=== PATIENT | male | born 1985 | race Caucasian/White ===

== ENCOUNTER 2016-06-16 10:41 | Inpatient (IN) | payer MEDICARE, OTHER ==
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
[~2016-06-16 10:41] MED LIST: ACET500CAP PEG; ACET500CAP PO; ALBUTEROL0.083 % INH; AMB5 PEG; ATROVENTUD INH; BACDS PO; BALMEX11.3 % TOP; BISR PR; CETIRIZINE PEG; CETIRIZINE5 MG/5 ML PEG; CONSTULOSE PO; DESITIN TOP; DIAPER RASH TOP; DUONEB INH; FENESIN IR400 MG PEG; FLEET ENEMA; FLORASTOR250 MG PO; GGDM5ML PEG; KURIC2 % TOP; MIRALAX POWDER1 PKT PO; MOMUD PEG; NIZORALCRM TOP; OMNICE1 PEG; PROVENTSOL INH; XPECT400 MG PEG
[2016-06-16 12:02] LABS: BASOPHILS 0.1 %; BASOPHILS ABSOLUTE 0.02 10/3/uL (0.0-0.16); EOSINOPHILS 0 %; HEMATOCRIT 42.1 % (40.0-51.0); IMMATURE GRANULOCYTES 0.5 %; LYMPHOCYTES 4.1 %; LYMPHOCYTES ABSOLUTE 1.04 10/3/uL (0.67-4.30); MEAN CORPUS HGB CONC 33.3 g/dL (32.0-36.0); MEAN CORPUSCULAR HEMOGLOB 30.4 pg (26.0-34.0); MEAN CORPUSCULAR VOLUME 91.5 fL (80-100); MEAN PLATELET VOLUME 10.7 fL (9.2-13.0); MONOCYTES 2.9 %; MONOCYTES ABSOLUTE 0.73 10/3/uL (0.21-1.20); NEUTROPHILS 92.4 %; NEUTROPHILS ABSOLUTE 23.59 10/3/uL (2.02-8.40); PLATELET COUNT 181 10/3/uL (150-400); RBC DISTRIBUTION WIDTH 12.8 % (12.0-16.0)
[2016-06-16 12:04] LABS: ER CBC TAT 0 Hrs 09 Mins; WHITE BLOOD CELLS 25.5 10/3/uL (4.5-10.5)
[2016-06-16 12:05] LABS: IMMATURE GRANULOCYTES ABSOLUTE 0.13 10/3/uL (0.0-0.11); MANUAL DIFF NO %
[2016-06-16 12:11] LABS: INTERNATIONAL NORMAL RATI 1.5 UNITS (-); PARTIAL THROMBO TIME 31.8 SEC (22.5-37.2); PROTIME (NOT ORD) 17.5 SEC (12.0-14.5)
[2016-06-16 12:16] LABS: BUN (BLOOD UREA NITROGEN) 14 MG/DL (6-23); CALCIUM, SERUM 8.4 MG/DL (8.5-10.4); CHLORIDE, SERUM 106 MMOL/L (96-112); CO2 (CARBON DIOXIDE) 25 MMOL/L (24-34); CREATININE 0.65 MG/DL (0.70-1.30); GFR AFRICAN AMERICAN 151 ML/MIN (>=60); GFR NON AFRICAN AMERICAN 131 ML/MIN (>=60); GLUCOSE, SERUM 86 MG/DL (60-99); POTASSIUM, SERUM 3.7 MMOL/L (3.5-5.3); SGOT(AST) 28 U/L (5-40); SGPT(ALT) 58 U/L (5-65); SODIUM, SERUM 141 MMOL/L (135-148); TOTAL BILIRUBIN 0.8 MG/DL (0-1.2)
[2016-06-16 12:20] LABS: A/G RATIO 0.7 (0.7-1.9); ALBUMIN 3.2 G/DL (3.5-5.0); ALKALINE PHOSPHATASE 149 U/L (45-117); GLOBULIN 4.5 G/DL (2.5-4.1); TOTAL PROTEIN 7.7 G/DL (6.0-8.5)
[2016-06-16 12:21] LABS: BAND NEUTROPHILS 1 %; ER DIFF TAT 0 Hrs 26 Mins; LYMPHOCYTES 4 %; LYMPHOCYTES ABSOLUTE (CALC) 1.02 10/3/uL (0.67-4.30); MONOCYTES 5 %; MONOCYTES ABSOLUTE (CALC) 1.28 10/3/uL (0.21-1.20); NEUTROPHILS ABSOLUTE (CALC) 23.21 10/3/uL (2.02-8.40); PLATELET ESTIMATE ADQ (ADEQUATE); RBC MORPHOLOGY NORM (NORMAL); SEGMENTED NEUTROPHIL (0) 90 %; TOTAL NUCLEATED CELLS 100
[2016-06-16 13:05] LABS: ASCORBIC ACID (UR NOT ORDER) 40 (NEG); BILIRUBIN, URINE NEGATIVE (NEG); ER URINALYSIS TAT 0 Hrs 14 Mins; KETONE, URINE TRACE MG/DL (NEG); LEUKOCYTE ESTERASE(NOT OR NEG (NEG); NITRITE (URINE) NEG (NEG); WBC (NOT ORDERED) (RFLEX) 6 (0-5)
[2016-06-16 13:34] LABS: PROCALCITONIN 1.77 ng/mL (<0.5)
[2016-06-16] MEDS ORDERED: FENESIN IR400 MG PEG (14:09)
[2016-06-16] MEDS ORDERED: AMB5 PEG (14:09)
[2016-06-16] MEDS ORDERED: CONSTULOSE PO (14:10)
[2016-06-16] MEDS ORDERED: MIRALAX POWDER1 PKT PEG (14:10)
[2016-06-16] MEDS ORDERED: ZYRTEC 1 MG/ML PEG (14:10)
[2016-06-16] MEDS ORDERED: ACET500CAP PEG (14:11)
[2016-06-16] MEDS ORDERED: DIAPER RASH TOP ×2 (14:12→14:13)
[2016-06-16] MEDS ORDERED: MOMUD PEG (14:14)
[2016-06-16] MEDS ORDERED: ALBUTEROL5 INH ×2 (14:14→14:16)
[2016-06-16] MEDS ORDERED: ATROVENTUD INH ×2 (14:15→14:16)
[2016-06-17 05:37] LABS: BASOPHILS 0.1 %; BASOPHILS ABSOLUTE 0.02 10/3/uL (0.0-0.16); EOSINOPHILS 0 %; HEMATOCRIT 38.9 % (40.0-51.0); HEMOGLOBIN 12.5 g/dL (13.6-17.8); IMMATURE GRANULOCYTES 0.3 %; IMMATURE GRANULOCYTES ABSOLUTE 0.04 10/3/uL (0.0-0.11); LYMPHOCYTES 7.7 %; LYMPHOCYTES ABSOLUTE 1.22 10/3/uL (0.67-4.30); MEAN CORPUS HGB CONC 32.1 g/dL (32.0-36.0); MEAN CORPUSCULAR HEMOGLOB 29.7 pg (26.0-34.0); MEAN CORPUSCULAR VOLUME 92.4 fL (80-100); MEAN PLATELET VOLUME 11.2 fL (9.2-13.0); MONOCYTES 4.6 %; MONOCYTES ABSOLUTE 0.72 10/3/uL (0.21-1.20); NEUTROPHILS 87.3 %; PLATELET COUNT 189 10/3/uL (150-400); RED CELL COUNT 4.21 10/6/uL (4.7-6.1); WHITE BLOOD CELLS 15.8 10/3/uL (4.5-10.5)
[2016-06-17 05:38] LABS: MANUAL DIFF NO %
[2016-06-17 05:56] LABS: CALCIUM, SERUM 8.7 MG/DL (8.5-10.4); CHLORIDE, SERUM 109 MMOL/L (96-112); CO2 (CARBON DIOXIDE) 24 MMOL/L (24-34); CREATININE 0.66 MG/DL (0.70-1.30); GFR AFRICAN AMERICAN 150 ML/MIN (>=60); GFR NON AFRICAN AMERICAN 130 ML/MIN (>=60); GLUCOSE, SERUM 75 MG/DL (60-99); POTASSIUM, SERUM 3.5 MMOL/L (3.5-5.3); SODIUM, SERUM 141 MMOL/L (135-148)
[2016-06-17 05:59] LABS: BUN (BLOOD UREA NITROGEN) 18 MG/DL (6-23)
[2016-06-18 05:23] LABS: BASOPHILS 0.1 %; BASOPHILS ABSOLUTE 0.01 10/3/uL (0.0-0.16); EOSINOPHILS ABSOLUTE 0.09 10/3/uL (0.0-0.53); HEMOGLOBIN 11.5 g/dL (13.6-17.8); IMMATURE GRANULOCYTES 0.1 %; IMMATURE GRANULOCYTES ABSOLUTE 0.01 10/3/uL (0.0-0.11); LYMPHOCYTES 11.8 %; MEAN CORPUSCULAR HEMOGLOB 30.3 pg (26.0-34.0); MEAN CORPUSCULAR VOLUME 91.8 fL (80-100); MEAN PLATELET VOLUME 10.7 fL (9.2-13.0); MONOCYTES 7.8 %; MONOCYTES ABSOLUTE 0.72 10/3/uL (0.21-1.20); NEUTROPHILS 79.2 %; NEUTROPHILS ABSOLUTE 7.36 10/3/uL (2.02-8.40); PLATELET COUNT 162 10/3/uL (150-400); RBC DISTRIBUTION WIDTH 12.9 % (12.0-16.0)
[2016-06-18 05:24] LABS: HEMATOCRIT 34.9 % (40.0-51.0); MANUAL DIFF NO %; WHITE BLOOD CELLS 9.3 10/3/uL (4.5-10.5)
[2016-06-18 05:37] LABS: VANCOMYCIN TROUGH 4.7 MCG/ML (10.0-20.0)
[2016-06-18 13:16] LABS: CALCIUM, SERUM 8.5 MG/DL (8.5-10.4); CHLORIDE, SERUM 109 MMOL/L (96-112); CO2 (CARBON DIOXIDE) 26 MMOL/L (24-34); CREATININE 0.53 MG/DL (0.70-1.30); GFR AFRICAN AMERICAN 165 ML/MIN (>=60); GFR NON AFRICAN AMERICAN 142 ML/MIN (>=60); POTASSIUM, SERUM 3.6 MMOL/L (3.5-5.3); SODIUM, SERUM 141 MMOL/L (135-148)
[2016-06-18 13:17] LABS: BUN (BLOOD UREA NITROGEN) 12 MG/DL (6-23); GLUCOSE, SERUM 98 MG/DL (60-99)
[2016-06-20 06:11] LABS: BASOPHILS 0.5 %; BASOPHILS ABSOLUTE 0.03 10/3/uL (0.0-0.16); EOSINOPHILS 1.6 %; EOSINOPHILS ABSOLUTE 0.09 10/3/uL (0.0-0.53); HEMATOCRIT 31.3 % (40.0-51.0); HEMOGLOBIN 10.5 g/dL (13.6-17.8); IMMATURE GRANULOCYTES 0.2 %; IMMATURE GRANULOCYTES ABSOLUTE 0.01 10/3/uL (0.0-0.11); LYMPHOCYTES 23.7 %; LYMPHOCYTES ABSOLUTE 1.32 10/3/uL (0.67-4.30); MANUAL DIFF NO %; MEAN CORPUS HGB CONC 33.5 g/dL (32.0-36.0); MEAN CORPUSCULAR VOLUME 89.4 fL (80-100); MEAN PLATELET VOLUME 10.6 fL (9.2-13.0); NEUTROPHILS ABSOLUTE 3.61 10/3/uL (2.02-8.40); PLATELET COUNT 194 10/3/uL (150-400); RBC DISTRIBUTION WIDTH 12.5 % (12.0-16.0); WHITE BLOOD CELLS 5.6 10/3/uL (4.5-10.5)
[2016-06-21 06:13] LABS: BASOPHILS 0.4 %; BASOPHILS ABSOLUTE 0.02 10/3/uL (0.0-0.16); EOSINOPHILS 1.6 %; EOSINOPHILS ABSOLUTE 0.08 10/3/uL (0.0-0.53); HEMATOCRIT 32.7 % (40.0-51.0); HEMOGLOBIN 11.2 g/dL (13.6-17.8); IMMATURE GRANULOCYTES 0.2 %; IMMATURE GRANULOCYTES ABSOLUTE 0.01 10/3/uL (0.0-0.11); LYMPHOCYTES 30.6 %; LYMPHOCYTES ABSOLUTE 1.55 10/3/uL (0.67-4.30); MEAN CORPUS HGB CONC 34.3 g/dL (32.0-36.0); MEAN CORPUSCULAR HEMOGLOB 30.2 pg (26.0-34.0); MEAN CORPUSCULAR VOLUME 88.1 fL (80-100); MEAN PLATELET VOLUME 10.5 fL (9.2-13.0); MONOCYTES 11.4 %; MONOCYTES ABSOLUTE 0.58 10/3/uL (0.21-1.20); NEUTROPHILS 55.8 %; NEUTROPHILS ABSOLUTE 2.83 10/3/uL (2.02-8.40); PLATELET COUNT 211 10/3/uL (150-400); RBC DISTRIBUTION WIDTH 12.4 % (12.0-16.0); RED CELL COUNT 3.71 10/6/uL (4.7-6.1); WHITE BLOOD CELLS 5.1 10/3/uL (4.5-10.5)
[2016-06-21 06:16] LABS: MANUAL DIFF NO %
[2016-06-21 07:48] LABS: CALCIUM, SERUM 7.8 MG/DL (8.5-10.4); CHLORIDE, SERUM 106 MMOL/L (96-112); CO2 (CARBON DIOXIDE) 23 MMOL/L (24-34); CREATININE 0.36 MG/DL (0.70-1.30); GFR AFRICAN AMERICAN 193 ML/MIN (>=60); GFR NON AFRICAN AMERICAN 166 ML/MIN (>=60); SGPT(ALT) 33 U/L (5-65); SODIUM, SERUM 141 MMOL/L (135-148)
[2016-06-21 07:49] LABS: A/G RATIO 0.6 (0.7-1.9); ALBUMIN 2.2 G/DL (3.5-5.0); ALKALINE PHOSPHATASE 95 U/L (45-117); BUN (BLOOD UREA NITROGEN) 4 MG/DL (6-23); GLOBULIN 3.9 G/DL (2.5-4.1); GLUCOSE, SERUM 119 MG/DL (60-99); TOTAL BILIRUBIN 0.2 MG/DL (0-1.2); TOTAL PROTEIN 6.1 G/DL (6.0-8.5)
[2016-06-21 07:50] LABS: SGOT(AST) 40 U/L (5-40)
[2016-06-21 07:51] LABS: POTASSIUM, SERUM 2.6 MMOL/L (3.5-5.3)
[2016-06-22 05:50] LABS: A/G RATIO 0.7 (0.7-1.9); ALBUMIN 2.4 G/DL (3.5-5.0); BUN (BLOOD UREA NITROGEN) 5 MG/DL (6-23); CHLORIDE, SERUM 107 MMOL/L (96-112); CO2 (CARBON DIOXIDE) 23 MMOL/L (24-34); CREATININE 0.39 MG/DL (0.70-1.30); GFR AFRICAN AMERICAN 187 ML/MIN (>=60); GFR NON AFRICAN AMERICAN 161 ML/MIN (>=60); GLOBULIN 3.3 G/DL (2.5-4.1); GLUCOSE, SERUM 136 MG/DL (60-99); SGOT(AST) 192 U/L (5-40); SGPT(ALT) 110 U/L (5-65); SODIUM, SERUM 140 MMOL/L (135-148); TOTAL BILIRUBIN 0.2 MG/DL (0-1.2); TOTAL PROTEIN 5.7 G/DL (6.0-8.5)
[2016-06-22 05:57] LABS: ALKALINE PHOSPHATASE 115 U/L (45-117); POTASSIUM, SERUM 4.6 MMOL/L (3.5-5.3)
[2016-06-22 06:54] LABS: BASOPHILS 0.4 %; BASOPHILS ABSOLUTE 0.02 10/3/uL (0.0-0.16); EOSINOPHILS 1.3 %; EOSINOPHILS ABSOLUTE 0.07 10/3/uL (0.0-0.53); HEMATOCRIT 33.6 % (40.0-51.0); HEMOGLOBIN 11.2 g/dL (13.6-17.8); IMMATURE GRANULOCYTES 0.2 %; IMMATURE GRANULOCYTES ABSOLUTE 0.01 10/3/uL (0.0-0.11); LYMPHOCYTES 30.6 %; LYMPHOCYTES ABSOLUTE 1.67 10/3/uL (0.67-4.30); MEAN CORPUS HGB CONC 33.3 g/dL (32.0-36.0); MEAN CORPUSCULAR HEMOGLOB 29.4 pg (26.0-34.0); MEAN CORPUSCULAR VOLUME 88.2 fL (80-100); MONOCYTES 9.9 %; MONOCYTES ABSOLUTE 0.54 10/3/uL (0.21-1.20); NEUTROPHILS 57.6 %; NEUTROPHILS ABSOLUTE 3.15 10/3/uL (2.02-8.40); PLATELET COUNT 235 10/3/uL (150-400); RBC DISTRIBUTION WIDTH 12.7 % (12.0-16.0); RED CELL COUNT 3.81 10/6/uL (4.7-6.1); WHITE BLOOD CELLS 5.5 10/3/uL (4.5-10.5)
[2016-06-22 06:56] LABS: MANUAL DIFF NO %
[2016-08-20] MEDS ORDERED: AMB5 NR (13:59)
[2016-08-20] MEDS ORDERED: FENESIN IR400 MG NR (13:59)
[2016-08-20] MEDS ORDERED: CETIRIZINE 1 MG/ML NR (14:00)
[2016-08-20] MEDS ORDERED: DESITIN TOP (14:01)
[2016-08-20] MEDS ORDERED: DUONEB INH (14:02)
[2016-08-20] MEDS ORDERED: MIRALAX POWDER1 PKT PO (14:03)
[2016-08-24] MEDS ORDERED: SINGULAIR1 PO (16:04)
[2016-08-24] MEDS ORDERED: PREDNISOLO15 MG/5 ML PO (16:06)
== END 2016-06-22 14:31 | disposition home or self-care (01) | DRG 919 ==
LOC: ER 10:41 → CDU1 15:14 → 7NO 06-19 03:30
PROVIDERS: Emergency Medicine; Hospitalist; Internal Medicine; Nurse Practitioner Family
PROC: 0DHA3UZ Insertion of Feeding Device into Jejunum, Percutaneous Approach (ICD-10-PCS; 2016-06-15)
PROC: 3E0H3KZ Introduction of Other Diagnostic Substance into Lower GI, Percutaneous Approach (ICD-10-PCS; principal; 2016-06-16)
DX: T85.79XA Infection and inflammatory reaction due to other internal prosthetic devices, implants and grafts, initial encounter (principal); A41.9 Sepsis, unspecified organism; E46 Unspecified protein-calorie malnutrition; K94.13 Enterostomy malfunction; F73 Profound intellectual disabilities; M41.9 Scoliosis, unspecified; Z68.1 Body mass index [BMI] 19.9 or less, adult; G40.909 Epilepsy, unspecified, not intractable, without status epilepticus; T85.848A Pain due to other internal prosthetic devices, implants and grafts, initial encounter; E87.6 Hypokalemia
CPT/HCPCS: 49441; 49465; 71010; 71250; 74000; 74177; 74250; 80048; 80053; 80202; 81001; 82962; 83605; 83735; 84132; 84145; 85025; 85610; 85730; 87040; 87493; 87493-59; 94640; 99285; A9270-GY; C1769; J0692; J1956; J2405; J2710; J3010; J3370; Q9967

== ENCOUNTER 2016-07-28 10:59 | Inpatient (IN) | payer MEDICARE, OTHER ==
--- NOTE | ~2016-07-28 | OP ---
Record Of Operation [facility] [address] [address] NAME: KALIA LEOS : 87 STATUS : ADM IN PAT#: [id number] AGE: 31 ADM/REG DATE : 07/28/16 MR#: [id number] REPORT SERV DATE: 07/31/16 DICTATED BY: AMBROSE JONES DATE: 07/30/16 REPORT STATUS : Draft TRANSCRIBED BY: MODL DATE: 07/30/16 DATE OF PROCEDURE: 07/30/2016 PROCEDURE: PEG change. INDICATION FOR PROCEDURE: The patient is a 31-year-old gentleman who requires long-term tube feedings and unfortunately, the G-tube is leaking a lot of stomach contents and needs to be changed. The 18-Italian replacement PEG that was in place, the balloon was deflated and the PEG was removed without difficulty and then a 20-Italian replacement PEG was placed through the same opening and the balloon was inflated to 20 mL and it went without any difficulty and without any complications. At this time, look for any more leakage and we will have the wound care nurse to look at the G-tube site for the excoriation and treatment of the excoriation. RS/DINESH brose Jones M.D. / [id number] CC: MD Ryan Hardin
--- NOTE | ~2016-07-28 | DS ---
Discharge Summary [facility] [address] [place]. [address] NAME: KALIA LEOS : 87 STATUS : ADM IN PAT#: [id number] AGE: 31 ADM/REG DATE : 07/28/16 MR#: [id number] REPORT SERV DATE: 08/19/16 DICTATED BY: RUPERT LOW DATE: 08/18/16 REPORT STATUS : Draft TRANSCRIBED BY: MODL DATE: 08/18/16 ADMISSION DATE: 07/28/2016 DISCHARGE DATE: 08/18/2016 DISCHARGE DIAGNOSES: 1. Acute on chronic hypoxic respiratory failure as well as hypercapnic respiratory failure. 2. Aspiration pneumonia, treated. 3. Recurrent mucus plugging. 4. Atelectasis. 5. Severe kyphoscoliosis. 6. Severe protein-calorie malnutrition. 7. Current gastric and jejunal tubes. 8. Ongoing do not resuscitate and do not intubate. CONSULTS: Pulmonology. PROCEDURES: Bronchoscopy performed yesterday, 08/17/2016, for removal of mucus plugging in both of the lower lobes. 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 For details throughout the hospital stay, please refer to the interim discharge summaries dictated by Dr. Santiago Kelly. Since the last dictated interim discharge summary, the patient has had a very uneventful hospital course. The main issue was of more legal and social issues regarding decision maker for the patient. We have sought ways to get a court appointed surrogate which has been unsuccessful and we eventually opted for two-physician consent to make decisions for him. The patient has been fairly stable up until last couple days when he became more progressively hypoxic, and he underwent bronchoscopy yesterday with removal of quite a bit of mucus plugs. Today, the patient is doing much better on 5 L of oxygen. The patient is otherwise very stable. It was felt that it is in his best interest to receive hospice care which will be nothing short of what we are able to provide here in the hospital. Also, given the patient's poor future outcomes and eventual prognosis, it is felt that the patient is best served by hospice care, especially as we have his code status established as DNR and DNI. The patient does have excellent foster parents who does take very well care of the patient who will resume care along with hospice service. The patient is now being discharged to home with hospice. DISPOSITION: Home with hospice. DISCHARGE MEDICATIONS: Please see discharge medication reconciliation by Hospice Service . FOLLOWUP: The patient will be followed up by Hospice Service. A total of 40 minutes spent in coordinating this patient's discharge today. Discharge Summary [facility] [address] [place]. [address] NAME: KALIA LEOS : 87 STATUS : ADM IN PAT#: [id number] AGE: 31 ADM/REG DATE : 07/28/16 MR#: [id number] REPORT SERV DATE: 08/19/16 DICTATED BY: RUPERT LOW DATE: 08/18/16 REPORT STATUS : Draft TRANSCRIBED BY: DINESH DATE: 08/18/16 DICTATED BY: Rupert Low MD [facility]/DINESH Rupert Low MD / [id number] CC: MD DU Mccall WAYNE
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
--- NOTE | ~2016-07-28 | DS ---
Discharge Summary [facility] [address] [place]. [address] NAME: KALIA LEOS : 87 STATUS : DIS IN PAT#: [id number] AGE: 31 ADM/REG DATE : 07/28/16 MR#: [id number] REPORT SERV DATE: 08/22/16 DICTATED BY: RUPERT LOW DATE: 08/20/16 REPORT STATUS : Draft TRANSCRIBED BY: MODL DATE: 08/20/16 ADMISSION DATE: 07/28/2016 DISCHARGE DATE: 08/19/2016 ADDENDUM: The addendum is that the patient was to be discharged to home with hospice, however, the [facility] suggested the patient be discharged back to their facility with her hospice as they do not have a hospice service that comes to their facility. That was respected and the patient was discharged back to [facility] without hospice service. Back at [facility], the patient was doing well, off oxygen all night and all morning and then he had an episode of coughing with hypoxia with oxygen saturations down to 70s percent at home. This was quickly resolved with oxygen support and as soon as his coughing spell had stopped. This was likely from mucus plugging which the patient is known to have and has been suffering this whole time the patient has been in the hospital. The patient was brought back to the ER today which is 08/20/2016 which is day after he was discharged back to [facility]. I personally saw the patient and examined him in the ER, and by the time, the patient had arrived to the ER, the patient was back to his baseline health status with out requiring any oxygen. The patient was empirically put on 2 L of oxygen in the ER, and the patient's vital signs had remained very stable. The patient's foster parents are again interested in hospice care. The patient's foster parents have been the only personnel to even come to the hospital to visit and they appear to be quite sincere and truthfully concerned about the patient. The foster parents of the patient unfortunately do not have legal guardianship of the patient. As a matter of fact, the patient does not have a legal guardianship at all and that has been an ongoing awters in terms of his pursuing what is best for the patient. While I personally believe the patient's foster parents may be the best decision maker for the patient, they are somehow legally not allowed to become a legal guardian. I have spoke with the cashier credit at [facility] regarding current situation who conveyed to me that they will have a board meeting tomorrow to decide disposition of the patient. I have emphasized that the patient will benefit most from hospice care and if that is something that [facility] can facilitate, I will not hesitate to add to the decision making if necessary or applicable. After the patient was seen in the ER, the patient was discharged back to the [facility] for further care. Both of the patient's foster parents understand. And I have given them my personal contact information for any future needs. DICTATED BY: Rupert Low MD Jarrod/DINESH Rupert Low MD Discharge Summary [address] [address] NAME: DAFNEKALIA MOORENE : 87 STATUS : DIS IN PAT#: [id number] AGE: 31 ADM/REG DATE : 07/28/16 MR#: [id number] REPORT SERV DATE: 08/22/16 DICTATED BY: RUPERT LOW DATE: 08/20/16 REPORT STATUS : Draft TRANSCRIBED BY: DINESH DATE: 08/20/16 / [id number] CC: MD DU Mccall WAYNE
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
--- NOTE | ~2016-07-28 | OP ---
Record Of Operation [facility] [address] [place]. [address] NAME: KALIA LEOS : 87 STATUS : ADM IN PAT#: [id number] AGE: 31 ADM/REG DATE : 07/28/16 MR#: [id number] REPORT SERV DATE: 08/17/16 DICTATED BY: SANKET RIVAS IV DATE: 08/17/16 REPORT STATUS : Draft TRANSCRIBED BY: DNIESH DATE: 08/17/16 DATE OF PROCEDURE: 08/17/2016 PREOPERATIVE DIAGNOSIS: CT evidence for mucus plugging of the bronchus intermedius, as well as the left lower lobe. POSTOPERATIVE DIAGNOSIS: Thick mucus in the bronchus intermedius, and left lower lobe bronchus, however, also with clockwise rotation of the bronchus intermedius, and distal airways approximately 45 degrees, with buckling of the airway, the bronchus intermedius causing some narrowing of the airway at baseline of about 50%. PROCEDURE: Diagnostic bronchoscopy with BAL and removal of mucus plugging of both lower lobes. CONTRAINDICATIONS: None. CONSENT: The risks, benefits, and alternative treatments and procedures were discussed with the patient's foster mother. Possible complications reviewed to include air leak around the lung, bleeding, infection, low oxygen level, and even potentially . The foster mother agreed to the procedure with consent signed and witnessed on the front of the chart. Because of issues with the surrogate decision maker, Dr. Kelly and I both agree that this is a medically indicated procedure. PREOPERATIVE LABS: The patient's INR was 1.3 and platelet count was 398,000. METHOD: The patient was taken to the bronchoscopy suite at [facility] and prepared in the usual manner. Anesthesiology was consulted to provide airway management as well as sedation. This was provided via an endotracheal tube. Once the endotracheal tube was secured and the patient was sedated, the bronchoscope was advanced through the endotracheal tube without difficulty. The endotracheal tube sat just proximal to the darshan and was retracted about 2 cm for the procedure. A total of 12 mL of 2% lidocaine solution was used throughout the procedure to provide airway anesthesia. Immediately, there were thick frye secretions which were suctioned even from the endotracheal tube. There was complete obstruction of the bronchus intermedius just after the takeoff of the right upper lobe bronchus. The bronchus intermedius was torqued 45 degrees clockwise with buckling of the airway mucosa causing narrowing of the airway by about 50%. The airway mucosa was slightly boggy. BALs were performed to remove mucus to the right middle lobe, right lower lobe, and superior segment with thick mucus plugs removed. There was some mucus plugging in the right upper lobe which was also BALed and plugs removed. At the conclusion all areas were patent, however, the patient did have as noted the extrinsic narrowing in the bronchus intermedius from the torsion. Attention was then placed to the left lung. With coughing, the patient had actually dislodge the mucus from this side, though there continued to have thick mucus plugging in the left lower lobe, and some in the left upper lobe. The BALs were performed with removal of additional mucous plugs. There was some submucosal hemorrhage from the suction trauma though no bleeding. There was anatomically narrowed airways everywhere at the conclusion of procedure, however, all airways were patent with normal anatomy other than Record Of Operation [address] [place]. [address] NAME: KALAI LEOS : 87 STATUS : ADM IN PAT#: [id number] AGE: 31 ADM/REG DATE : 07/28/16 MR#: [id number] REPORT SERV DATE: 08/17/16 DICTATED BY: SANKET RIVAS IV DATE: 08/17/16 REPORT STATUS : Draft TRANSCRIBED BY: DINESH DATE: 08/17/16 the bronchus intermedius torsion. The patient tolerated the procedure well. We will attempt to extubate and sent back to recovery. Estimated blood loss was 0 mL. BALs were both sent for culture as well as for cytology. ANALILIA/DINESH Sanket Rivas IV, M.D. / [id number] CC: Deon Dye WAYNE
--- NOTE | ~2016-07-28 | IDS ---
Interim Discharge Summary [facility] [address] [place]. [address] NAME: KALIA LEOS : 87 STATUS : ADM IN PAT#: [id number] AGE: 31 ADM/REG DATE : 07/28/16 MR#: [id number] REPORT SERV DATE: 08/11/16 DICTATED BY: Jenny VAZQUEZ DATE: 08/11/16 REPORT STATUS : Draft TRANSCRIBED BY: MODL DATE: 08/11/16 ADMISSION DATE: 07/28/2016 DISCHARGE DATE: DATE OF PREVIOUS INTERIM SUMMARY: 08/03/2016. DATE OF TODAY'S INTERIM SUMMARY: 08/11/2016. DIAGNOSES AT THE TIME OF INTERIM SUMMARY: 1. Rejwe-yd-onjfbsz respiratory failure with hypoxia and hypercapnia. 2. Aspiration pneumonia, treated. 3. Recurrent mucous plugging. 4. Atelectasis. 5. Severe kyphoscoliosis. 6. Severe protein-calorie malnutrition. 7. Current gastric and jejunal tubes with excoriation around tube sites. 8. Ongoing do-hcc-vbzctvwuykn/vr-iwo-wccsaesd. CONSULTS: Pulmonology. PROCEDURES: None. HOSPITAL COURSE: Since the last interim summary, the patient has had a very uneventful course. In fact, as of 08/10/2016, he was back to his baseline from a pulmonary standpoint and a mental status standpoint. However, overnight on 08/10/2016, he had a setback with recurrent hypoxia. It is unclear the etiology but most likely represents recurrent mucous plugging plus/minus atelectasis. The patient is now above back on Vapotherm for oxygenation and we are in the process of weaning this back as he tolerates. We will continue to observe him off antibiotics as he remains afebrile. His white count is only 11.6 and his last procalcitonin was normal. Ultimately, when the patient reaches his medical baseline, he will transition back to living with his foster parents at the long term. We are also asking [facility] to start the process of getting a court-appointed medical surrogate to advocate on his behalf. He is clearly not competent to make his own decisions or participate in his care and his current foster parents do not have legal guardianship. Hopefully, this process can be arranged prior to discharge. Another member of the hospitalist team will assume his care starting 08/12/2016 with ongoing comanagement from the pulmonary service. [facility]/DINESH Jenny Vazquez M.D. / [id number] Interim Discharge Summary [address] [address] NAME: KALIA LEOS : 87 STATUS : ADM IN PAT#: [id number] AGE: 31 ADM/REG DATE : 07/28/16 MR#: [id number] REPORT SERV DATE: 08/11/16 DICTATED BY: Jenny VAZQUEZ DATE: 08/11/16 REPORT STATUS : Draft TRANSCRIBED BY: DINESH DATE: 08/11/16 CC: Deon Dye [place]
--- NOTE | ~2016-07-28 | IDS ---
Interim Discharge Summary [facility] [address] [place]. [address] NAME: KALIA LEOS : 87 STATUS : ADM IN PAT#: [id number] AGE: 31 ADM/REG DATE : 07/28/16 MR#: [id number] REPORT SERV DATE: 08/03/16 DICTATED BY: Jenny VAZQUEZ DATE: 08/03/16 REPORT STATUS : Draft TRANSCRIBED BY: MODL DATE: 08/03/16 ADMISSION DATE: 07/28/2016 DISCHARGE DATE: DATE OF INTERIM SUMMARY: 08/03/2016. DIAGNOSES AT TIME OF INTERIM SUMMARY: 1. Sepsis present on admission, resolved. 2. 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 3. Acute on chronic respiratory failure with hypoxia. 4. Aspiration pneumonia, recurrent. 5. Mucous plugging. 6. Abdominal wall cellulitis, status post replacement of G and J tubes. 7. Severe protein-calorie malnutrition. CONSULT: [facility], Gastroenterology, Pulmonology. PROCEDURES: Replacement of gastric and jejunal feeding tubes per [facility] done 08/03/2016. 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 The patient slowly responded to aggressive therapy and broad-spectrum antimicrobial therapy to the point that he is at his baseline mental status and has been transitioned to nasal cannula O2. The patient was seen and managed with the assistance of Pulmonary Medicine. We did speak with his foster parents who agreed that DNR/DNI was appropriate. He does not have a legal guardianship, so Dr. Romero of Palliative Care and myself completed the DNR form based on the severity of his medical issues in the futility of an ACLS type resuscitation. The patient continued to have dysfunction of his jejunal and gastric tubes. These were placed by [facility] without difficulty with a 24-[place] Islander gastric tube placed for medications and an 18-[place] Islander jejunal tube placed for feeding. At the time of this interim summary, he continues to trend toward his baseline. His labs have been stable. It is likely he will transition back to the care of his foster parents somewhere in the next one to a few days pending on followup laboratory and successful correction of the leaking feeding tubes, which hopefully have been corrected today by [facility]. The patient's care will be provided by another member of the hospitalist team starting 08/04/2016 with ongoing assistance from Pulmonary Medicine. [facility]/DINESH Jenny Vazquez M.D. Interim Discharge Summary [address] [address] NAME: DAFNEKALIANE : 87 STATUS : ADM IN PAT#: [id number] AGE: 31 ADM/REG DATE : 07/28/16 MR#: [id number] REPORT SERV DATE: 08/03/16 DICTATED BY: Jenny VAZQUEZ DATE: 08/03/16 REPORT STATUS : Draft TRANSCRIBED BY: DINESH DATE: 08/03/16 / [id number] CC: Deon Dye Wayne
[~2016-07-28 10:59] MED LIST changes: +ALBUTEROL5 INH; +MIRALAX POWDER1 PKT PEG; +ZYRTEC 1 MG/ML PEG
[2016-07-28 12:02] LABS: BASOPHILS 0.1 %; BASOPHILS ABSOLUTE 0.01 10/3/uL (0.0-0.16); EOSINOPHILS 0.4 %; EOSINOPHILS ABSOLUTE 0.03 10/3/uL (0.0-0.53); IMMATURE GRANULOCYTES 0.2 %; IMMATURE GRANULOCYTES ABSOLUTE 0.02 10/3/uL (0.0-0.11); LYMPHOCYTES 13.1 %; LYMPHOCYTES ABSOLUTE 1.09 10/3/uL (0.67-4.30); MEAN CORPUS HGB CONC 32.8 g/dL (32.0-36.0); MEAN CORPUSCULAR HEMOGLOB 30.1 pg (26.0-34.0); MEAN PLATELET VOLUME 10.4 fL (9.2-13.0); MONOCYTES 6.8 %; MONOCYTES ABSOLUTE 0.57 10/3/uL (0.21-1.20); NEUTROPHILS 79.4 %; NEUTROPHILS ABSOLUTE 6.61 10/3/uL (2.02-8.40); PLATELET COUNT 210 10/3/uL (150-400); RBC DISTRIBUTION WIDTH 12.7 % (12.0-16.0)
[2016-07-28 12:04] LABS: ER CBC TAT 0 Hrs 09 MinsNP; HEMATOCRIT 42.7 % (40.0-51.0); MANUAL DIFF NO %; MEAN CORPUSCULAR VOLUME 91.8 fL (80-100); RED CELL COUNT 4.65 10/6/uL (4.7-6.1); WHITE BLOOD CELLS 8.3 10/3/uL (4.5-10.5)
[2016-07-28 12:22] LABS: CHLORIDE, SERUM 106 MMOL/L (96-112); CREATININE 0.58 MG/DL (0.70-1.30); GFR AFRICAN AMERICAN 159 ML/MIN (>=60); GFR NON AFRICAN AMERICAN 137 ML/MIN (>=60); POTASSIUM, SERUM 4.1 MMOL/L (3.5-5.3); SGOT(AST) 40 U/L (5-40); SGPT(ALT) 105 U/L (5-65); SODIUM, SERUM 139 MMOL/L (135-148); TOTAL BILIRUBIN 0.5 MG/DL (0-1.2)
[2016-07-28 12:24] LABS: A/G RATIO 0.8 (0.7-1.9); ALBUMIN 3.5 G/DL (3.5-5.0); ALKALINE PHOSPHATASE 154 U/L (45-117); BUN (BLOOD UREA NITROGEN) 13 MG/DL (6-23); CALCIUM, SERUM 9.1 MG/DL (8.5-10.4); CO2 (CARBON DIOXIDE) 28 MMOL/L (24-34); GLOBULIN 4.6 G/DL (2.5-4.1); GLUCOSE, SERUM 88 MG/DL (60-99); TOTAL PROTEIN 8.1 G/DL (6.0-8.5)
[2016-07-28] MEDS ORDERED: FENESIN IR400 MG PEG (13:35)
[2016-07-28] MEDS ORDERED: AMB5 PEG ×2 (13:37)
[2016-07-28] MEDS ORDERED: CETIRIZINE PEG (13:41)
[2016-07-28] MEDS ORDERED: CONSTULOSE PEG (13:42)
[2016-07-28] MEDS ORDERED: MIRALAX POWDER1 PKT PEG (13:45)
[2016-07-28] MEDS ORDERED: DIAPER RASH TOP ×2 (13:46)
[2016-07-28] MEDS ORDERED: GGDM5ML PEG (13:47)
[2016-07-28] MEDS ORDERED: MOMUD PEG (13:49)
[2016-07-28] MEDS ORDERED: FLEET ENEMA PR (13:52)
[2016-07-28] MEDS ORDERED: ACET500CAP PEG (13:53)
[2016-07-28] MEDS ORDERED: BISR PR (13:54)
[2016-07-28] MEDS ORDERED: IPRATROPIUM NEB INH (13:55)
[2016-07-28] MEDS ORDERED: ALBUTEROL0.083 % INH (13:55)
[2016-07-28] MEDS ORDERED: NIZORALCRM TOP (13:56)
[2016-07-28 18:39] LABS: FERRITIN 38 NG/ML (26-388); FREE T4 1.27 NG/DL (0.76-1.46); IRON BINDING CAPACITY 349 MCG/DL (250-450); IRON, SERUM 32 MCG/DL (35-150); PHOSPHORUS, SERUM 2.9 MG/DL (2.5-4.5)
[2016-07-28 19:11] LABS: ACETONE NEG
[2016-07-28 19:37] LABS: PROCALCITONIN < 0.05 ng/mL (<0.5)
[2016-07-28 21:26] LABS: B NATRIURETIC PEPTIDE (BNP) 13.4 PG/ML (< 100.0)
[2016-07-29 00:31] LABS: ASCORBIC ACID (UR NOT ORDER) 20 (NEG); BILIRUBIN, URINE NEGATIVE (NEG); KETONE, URINE TRACE MG/DL (NEG); LEUKOCYTE ESTERASE(NOT OR NEG (NEG); WBC (NOT ORDERED) (RFLEX) 2 (0-5)
[2016-07-29 04:36] LABS: INTERNATIONAL NORMAL RATI 1.3 UNITS (-); PARTIAL THROMBO TIME 45.8 SEC (22.5-37.2); PROTIME (NOT ORD) 16.4 SEC (12.0-14.5)
[2016-07-29 04:40] LABS: BASOPHILS 0.2 %; BASOPHILS ABSOLUTE 0.02 10/3/uL (0.0-0.16); EOSINOPHILS 0.3 %; EOSINOPHILS ABSOLUTE 0.03 10/3/uL (0.0-0.53); HEMOGLOBIN 11.5 g/dL (13.6-17.8); IMMATURE GRANULOCYTES 0.4 %; IMMATURE GRANULOCYTES ABSOLUTE 0.04 10/3/uL (0.0-0.11); LYMPHOCYTES 13.2 %; LYMPHOCYTES ABSOLUTE 1.49 10/3/uL (0.67-4.30); MEAN CORPUS HGB CONC 32.8 g/dL (32.0-36.0); MEAN CORPUSCULAR HEMOGLOB 30.5 pg (26.0-34.0); MEAN CORPUSCULAR VOLUME 93.1 fL (80-100); MONOCYTES 8.4 %; MONOCYTES ABSOLUTE 0.95 10/3/uL (0.21-1.20); NEUTROPHILS 77.5 %; NEUTROPHILS ABSOLUTE 8.72 10/3/uL (2.02-8.40); PLATELET COUNT 188 10/3/uL (150-400); RBC DISTRIBUTION WIDTH 12.8 % (12.0-16.0); RED CELL COUNT 3.77 10/6/uL (4.7-6.1); WHITE BLOOD CELLS 11.3 10/3/uL (4.5-10.5)
[2016-07-29 04:41] LABS: A/G RATIO 0.8 (0.7-1.9); ALBUMIN 2.8 G/DL (3.5-5.0); ALKALINE PHOSPHATASE 112 U/L (45-117); BUN (BLOOD UREA NITROGEN) 10 MG/DL (6-23); CALCIUM, SERUM 8.1 MG/DL (8.5-10.4); CHLORIDE, SERUM 108 MMOL/L (96-112); CO2 (CARBON DIOXIDE) 23 MMOL/L (24-34); CREATININE 0.42 MG/DL (0.70-1.30); GFR AFRICAN AMERICAN 181 ML/MIN (>=60); GFR NON AFRICAN AMERICAN 156 ML/MIN (>=60); GLOBULIN 3.5 G/DL (2.5-4.1); GLUCOSE, SERUM 89 MG/DL (60-99); POTASSIUM, SERUM 3.9 MMOL/L (3.5-5.3); SGOT(AST) 31 U/L (5-40); SGPT(ALT) 67 U/L (5-65); SODIUM, SERUM 140 MMOL/L (135-148); TOTAL BILIRUBIN 1.1 MG/DL (0-1.2); TOTAL PROTEIN 6.3 G/DL (6.0-8.5)
[2016-07-29 04:47] LABS: HEMATOCRIT 35.1 % (40.0-51.0); MANUAL DIFF NO %
[2016-07-30 04:44] LABS: HEMATOCRIT 35.6 % (40.0-51.0); HEMOGLOBIN 11.5 g/dL (13.6-17.8); MEAN CORPUS HGB CONC 32.3 g/dL (32.0-36.0); MEAN CORPUSCULAR HEMOGLOB 29.8 pg (26.0-34.0); MEAN CORPUSCULAR VOLUME 92.2 fL (80-100); MEAN PLATELET VOLUME 11.1 fL (9.2-13.0); PLATELET COUNT 189 10/3/uL (150-400); RBC DISTRIBUTION WIDTH 12.8 % (12.0-16.0); RED CELL COUNT 3.86 10/6/uL (4.7-6.1); WHITE BLOOD CELLS 11.3 10/3/uL (4.5-10.5)
[2016-07-30 04:51] LABS: MANUAL DIFF YES %
[2016-07-30 04:56] LABS: BUN (BLOOD UREA NITROGEN) 12 MG/DL (6-23); CALCIUM, SERUM 8.3 MG/DL (8.5-10.4); CHLORIDE, SERUM 106 MMOL/L (96-112); CO2 (CARBON DIOXIDE) 19 MMOL/L (24-34); CREATININE 0.51 MG/DL (0.70-1.30); GFR AFRICAN AMERICAN 167 ML/MIN (>=60); GFR NON AFRICAN AMERICAN 144 ML/MIN (>=60); POTASSIUM, SERUM 4.3 MMOL/L (3.5-5.3); SODIUM, SERUM 137 MMOL/L (135-148)
[2016-07-30 04:57] LABS: GLUCOSE, SERUM 56 MG/DL (60-99)
[2016-07-30 06:20] LABS: PROCALCITONIN 0.21 ng/mL (<0.5)
[2016-07-30 06:24] LABS: BAND NEUTROPHILS 4 %; BASOPHILS 1 %; BASOPHILS ABSOLUTE (CALC) 0.11 10/3/uL (0.0-0.16); EOSINOPHILS 1 %; EOSINOPHILS ABSOLUTE (CALC) 0.11 10/3/uL (0.0-0.53); LYMPHOCYTES 14 %; LYMPHOCYTES ABSOLUTE (CALC) 1.58 10/3/uL (0.67-4.30); MONOCYTES 5 %; MONOCYTES ABSOLUTE (CALC) 0.57 10/3/uL (0.21-1.20); NEUTROPHILS ABSOLUTE (CALC) 8.93 10/3/uL (2.02-8.40); PLATELET ESTIMATE ADQ (ADEQUATE); POLYCHROMASIA 1+ (2-5/OIF) (0-1/OIF); SEGMENTED NEUTROPHIL (0) 75 %; TARGET CELLS OCC (1-2/OIF) (0-1/OIF); TOTAL NUCLEATED CELLS 100; TOXIC GRANULATION SLT
[2016-07-31 05:34] LABS: BASOPHILS 0.2 %; BASOPHILS ABSOLUTE 0.02 10/3/uL (0.0-0.16); EOSINOPHILS 0.7 %; EOSINOPHILS ABSOLUTE 0.08 10/3/uL (0.0-0.53); HEMATOCRIT 33.1 % (40.0-51.0); IMMATURE GRANULOCYTES 0.1 %; IMMATURE GRANULOCYTES ABSOLUTE 0.01 10/3/uL (0.0-0.11); LYMPHOCYTES 15.3 %; LYMPHOCYTES ABSOLUTE 1.65 10/3/uL (0.67-4.30); MEAN CORPUS HGB CONC 33.2 g/dL (32.0-36.0); MEAN CORPUSCULAR HEMOGLOB 29.9 pg (26.0-34.0); MEAN CORPUSCULAR VOLUME 89.9 fL (80-100); MEAN PLATELET VOLUME 10.9 fL (9.2-13.0); MONOCYTES 8.4 %; NEUTROPHILS 75.3 %; PLATELET COUNT 207 10/3/uL (150-400); RBC DISTRIBUTION WIDTH 12.8 % (12.0-16.0); RED CELL COUNT 3.68 10/6/uL (4.7-6.1); WHITE BLOOD CELLS 10.8 10/3/uL (4.5-10.5)
[2016-07-31 05:38] LABS: A/G RATIO 0.6 (0.7-1.9); ALBUMIN 2.5 G/DL (3.5-5.0); ALKALINE PHOSPHATASE 94 U/L (45-117); BUN (BLOOD UREA NITROGEN) 16 MG/DL (6-23); CALCIUM, SERUM 8.4 MG/DL (8.5-10.4); CHLORIDE, SERUM 107 MMOL/L (96-112); CO2 (CARBON DIOXIDE) 23 MMOL/L (24-34); CREATININE 0.29 MG/DL (0.70-1.30); GFR AFRICAN AMERICAN 211 ML/MIN (>=60); GFR NON AFRICAN AMERICAN 182 ML/MIN (>=60); GLUCOSE, SERUM 64 MG/DL (60-99); POTASSIUM, SERUM 3.8 MMOL/L (3.5-5.3); SGOT(AST) 29 U/L (5-40); SGPT(ALT) 50 U/L (5-65); SODIUM, SERUM 138 MMOL/L (135-148); TOTAL BILIRUBIN 0.7 MG/DL (0-1.2); TOTAL PROTEIN 6.5 G/DL (6.0-8.5)
[2016-07-31 05:40] LABS: MANUAL DIFF NO %
[2016-07-31 06:06] LABS: PROCALCITONIN 0.13 ng/mL (<0.5)
[2016-07-31 12:08] LABS: PHOSPHORUS, SERUM 2.6 MG/DL (2.5-4.5)
[2016-07-31 12:17] LABS: PREALBUMIN 5.8 MG/DL (17.0-43.0)
[2016-08-01 05:55] LABS: BASOPHILS 0.1 %; BASOPHILS ABSOLUTE 0.01 10/3/uL (0.0-0.16); EOSINOPHILS 1.3 %; HEMATOCRIT 30.8 % (40.0-51.0); HEMOGLOBIN 10.3 g/dL (13.6-17.8); IMMATURE GRANULOCYTES 0.1 %; IMMATURE GRANULOCYTES ABSOLUTE 0.01 10/3/uL (0.0-0.11); LYMPHOCYTES 14.9 %; LYMPHOCYTES ABSOLUTE 1.13 10/3/uL (0.67-4.30); MEAN CORPUS HGB CONC 33.4 g/dL (32.0-36.0); MEAN CORPUSCULAR HEMOGLOB 29.7 pg (26.0-34.0); MEAN CORPUSCULAR VOLUME 88.8 fL (80-100); MEAN PLATELET VOLUME 10.8 fL (9.2-13.0); MONOCYTES 7.4 %; MONOCYTES ABSOLUTE 0.56 10/3/uL (0.21-1.20); NEUTROPHILS 76.2 %; NEUTROPHILS ABSOLUTE 5.77 10/3/uL (2.02-8.40); PLATELET COUNT 176 10/3/uL (150-400); RBC DISTRIBUTION WIDTH 12.4 % (12.0-16.0); RED CELL COUNT 3.47 10/6/uL (4.7-6.1); WHITE BLOOD CELLS 7.6 10/3/uL (4.5-10.5)
[2016-08-01 05:56] LABS: MANUAL DIFF NO %
[2016-08-01 06:06] LABS: BUN (BLOOD UREA NITROGEN) 12 MG/DL (6-23); CALCIUM, SERUM 8.5 MG/DL (8.5-10.4); CHLORIDE, SERUM 101 MMOL/L (96-112); CO2 (CARBON DIOXIDE) 27 MMOL/L (24-34); CREATININE 0.38 MG/DL (0.70-1.30); GFR AFRICAN AMERICAN 189 ML/MIN (>=60); GFR NON AFRICAN AMERICAN 163 ML/MIN (>=60); GLUCOSE, SERUM 59 MG/DL (60-99); POTASSIUM, SERUM 3.2 MMOL/L (3.5-5.3); SODIUM, SERUM 135 MMOL/L (135-148)
[2016-08-02 04:56] LABS: BASOPHILS 0.2 %; BASOPHILS ABSOLUTE 0.02 10/3/uL (0.0-0.16); EOSINOPHILS 2.2 %; EOSINOPHILS ABSOLUTE 0.21 10/3/uL (0.0-0.53); HEMATOCRIT 31.4 % (40.0-51.0); HEMOGLOBIN 10.6 g/dL (13.6-17.8); IMMATURE GRANULOCYTES 0.1 %; IMMATURE GRANULOCYTES ABSOLUTE 0.01 10/3/uL (0.0-0.11); LYMPHOCYTES 13.5 %; MEAN CORPUS HGB CONC 33.8 g/dL (32.0-36.0); MEAN CORPUSCULAR HEMOGLOB 30.2 pg (26.0-34.0); MEAN CORPUSCULAR VOLUME 89.5 fL (80-100); MEAN PLATELET VOLUME 10.4 fL (9.2-13.0); MONOCYTES 8.1 %; MONOCYTES ABSOLUTE 0.78 10/3/uL (0.21-1.20); NEUTROPHILS 75.9 %; NEUTROPHILS ABSOLUTE 7.29 10/3/uL (2.02-8.40); PLATELET COUNT 209 10/3/uL (150-400); RBC DISTRIBUTION WIDTH 12.6 % (12.0-16.0); RED CELL COUNT 3.51 10/6/uL (4.7-6.1); WHITE BLOOD CELLS 9.6 10/3/uL (4.5-10.5)
[2016-08-02 04:57] LABS: MANUAL DIFF NO %
[2016-08-02 05:11] LABS: CALCIUM, SERUM 8.5 MG/DL (8.5-10.4); CHLORIDE, SERUM 106 MMOL/L (96-112); CO2 (CARBON DIOXIDE) 27 MMOL/L (24-34); CREATININE 0.43 MG/DL (0.70-1.30); GFR AFRICAN AMERICAN 179 ML/MIN (>=60); GFR NON AFRICAN AMERICAN 155 ML/MIN (>=60); PHOSPHORUS, SERUM 2.1 MG/DL (2.5-4.5); POTASSIUM, SERUM 3.4 MMOL/L (3.5-5.3); SODIUM, SERUM 138 MMOL/L (135-148)
[2016-08-02 05:12] LABS: BUN (BLOOD UREA NITROGEN) 17 MG/DL (6-23); GLUCOSE, SERUM 118 MG/DL (60-99)
[2016-08-03 06:02] LABS: BASOPHILS 0.3 %; BASOPHILS ABSOLUTE 0.02 10/3/uL (0.0-0.16); EOSINOPHILS 5.8 %; EOSINOPHILS ABSOLUTE 0.36 10/3/uL (0.0-0.53); HEMATOCRIT 29.9 % (40.0-51.0); HEMOGLOBIN 10.1 g/dL (13.6-17.8); IMMATURE GRANULOCYTES 0.2 %; IMMATURE GRANULOCYTES ABSOLUTE 0.01 10/3/uL (0.0-0.11); LYMPHOCYTES 22.5 %; MEAN CORPUS HGB CONC 33.8 g/dL (32.0-36.0); MEAN CORPUSCULAR HEMOGLOB 30.6 pg (26.0-34.0); MEAN CORPUSCULAR VOLUME 90.6 fL (80-100); MEAN PLATELET VOLUME 10.2 fL (9.2-13.0); MONOCYTES 7.4 %; MONOCYTES ABSOLUTE 0.46 10/3/uL (0.21-1.20); NEUTROPHILS 63.8 %; NEUTROPHILS ABSOLUTE 3.97 10/3/uL (2.02-8.40); PLATELET COUNT 226 10/3/uL (150-400); RBC DISTRIBUTION WIDTH 12.8 % (12.0-16.0); WHITE BLOOD CELLS 6.2 10/3/uL (4.5-10.5)
[2016-08-03 06:04] LABS: MANUAL DIFF NO %
[2016-08-03 06:07] LABS: BUN (BLOOD UREA NITROGEN) 15 MG/DL (6-23); CALCIUM, SERUM 8.6 MG/DL (8.5-10.4); CHLORIDE, SERUM 107 MMOL/L (96-112); CO2 (CARBON DIOXIDE) 25 MMOL/L (24-34); CREATININE 0.42 MG/DL (0.70-1.30); GFR AFRICAN AMERICAN 181 ML/MIN (>=60); GFR NON AFRICAN AMERICAN 156 ML/MIN (>=60); SODIUM, SERUM 143 MMOL/L (135-148)
[2016-08-03 06:17] LABS: GLUCOSE, SERUM 74 MG/DL (60-99); POTASSIUM, SERUM 4.1 MMOL/L (3.5-5.3)
[2016-08-03 07:19] LABS: PROCALCITONIN 0.05 ng/mL (<0.5)
[2016-08-04 03:47] LABS: ALLENS TEST Pos; BE (BASE EXCESS) -0.1 MEQ/L (0 +/- 2.5); BIPAP 16/8 cm.H2O; HCO3 (ACTUAL BICARBONATE) 21.9 MEQ/L (23-27); HEMOBLOGIN CONTENT 11.1 G/DL (14-18); INSTRUMENT SERIAL # 8083; METHEMOGLOBIN 0.3 % (0-3); O2 CONTENT 15.9 VOL% (18-24); OPERATOR ID 33214; PCO2 (CO2 TENSION) 28 MMHG (35-45); PO2 (O2 TENSION) 199 MMHG (79-93); SAMPLE Arterial; pH 7.52 (7.37-7.43)
[2016-08-04 04:09] LABS: BASOPHILS 0.2 %; BASOPHILS ABSOLUTE 0.02 10/3/uL (0.0-0.16); EOSINOPHILS 0.4 %; EOSINOPHILS ABSOLUTE 0.04 10/3/uL (0.0-0.53); HEMOGLOBIN 10.7 g/dL (13.6-17.8); IMMATURE GRANULOCYTES 0.2 %; IMMATURE GRANULOCYTES ABSOLUTE 0.02 10/3/uL (0.0-0.11); LYMPHOCYTES 13.3 %; LYMPHOCYTES ABSOLUTE 1.41 10/3/uL (0.67-4.30); MEAN CORPUS HGB CONC 32.2 g/dL (32.0-36.0); MEAN CORPUSCULAR HEMOGLOB 29.7 pg (26.0-34.0); MEAN CORPUSCULAR VOLUME 92.2 fL (80-100); MEAN PLATELET VOLUME 10.3 fL (9.2-13.0); MONOCYTES 10.5 %; MONOCYTES ABSOLUTE 1.12 10/3/uL (0.21-1.20); NEUTROPHILS 75.4 %; NEUTROPHILS ABSOLUTE 8.02 10/3/uL (2.02-8.40); PLATELET COUNT 257 10/3/uL (150-400); RBC DISTRIBUTION WIDTH 12.7 % (12.0-16.0)
[2016-08-04 04:16] LABS: HEMATOCRIT 33.2 % (40.0-51.0); MANUAL DIFF NO %; WHITE BLOOD CELLS 10.6 10/3/uL (4.5-10.5)
[2016-08-04 04:27] LABS: CALCIUM, SERUM 8.9 MG/DL (8.5-10.4); CHLORIDE, SERUM 104 MMOL/L (96-112); CO2 (CARBON DIOXIDE) 29 MMOL/L (24-34); CREATININE 0.63 MG/DL (0.70-1.30); GFR AFRICAN AMERICAN 153 ML/MIN (>=60); GFR NON AFRICAN AMERICAN 132 ML/MIN (>=60); POTASSIUM, SERUM 4.9 MMOL/L (3.5-5.3); SODIUM, SERUM 140 MMOL/L (135-148)
[2016-08-04 04:28] LABS: BUN (BLOOD UREA NITROGEN) 19 MG/DL (6-23); GLUCOSE, SERUM 124 MG/DL (60-99)
[2016-08-06 06:11] LABS: BASOPHILS 0.2 %; BASOPHILS ABSOLUTE 0.02 10/3/uL (0.0-0.16); HEMATOCRIT 31.9 % (40.0-51.0); HEMOGLOBIN 10.3 g/dL (13.6-17.8); IMMATURE GRANULOCYTES 0.2 %; IMMATURE GRANULOCYTES ABSOLUTE 0.02 10/3/uL (0.0-0.11); LYMPHOCYTES 18.6 %; LYMPHOCYTES ABSOLUTE 1.85 10/3/uL (0.67-4.30); MEAN CORPUS HGB CONC 32.3 g/dL (32.0-36.0); MEAN CORPUSCULAR HEMOGLOB 29.3 pg (26.0-34.0); MEAN CORPUSCULAR VOLUME 90.9 fL (80-100); MEAN PLATELET VOLUME 9.9 fL (9.2-13.0); MONOCYTES 9.7 %; MONOCYTES ABSOLUTE 0.96 10/3/uL (0.21-1.20); NEUTROPHILS 69.3 %; NEUTROPHILS ABSOLUTE 6.88 10/3/uL (2.02-8.40); PLATELET COUNT 254 10/3/uL (150-400); RBC DISTRIBUTION WIDTH 12.8 % (12.0-16.0); RED CELL COUNT 3.51 10/6/uL (4.7-6.1); WHITE BLOOD CELLS 9.9 10/3/uL (4.5-10.5)
[2016-08-06 06:12] LABS: MANUAL DIFF NO %
[2016-08-06 06:20] LABS: CALCIUM, SERUM 8.4 MG/DL (8.5-10.4); CHLORIDE, SERUM 104 MMOL/L (96-112); CO2 (CARBON DIOXIDE) 27 MMOL/L (24-34); CREATININE 0.45 MG/DL (0.70-1.30); GFR AFRICAN AMERICAN 176 ML/MIN (>=60); GFR NON AFRICAN AMERICAN 152 ML/MIN (>=60); POTASSIUM, SERUM 4.3 MMOL/L (3.5-5.3); SODIUM, SERUM 136 MMOL/L (135-148)
[2016-08-06 06:22] LABS: BUN (BLOOD UREA NITROGEN) 15 MG/DL (6-23); GLUCOSE, SERUM 78 MG/DL (60-99); PHOSPHORUS, SERUM 3.2 MG/DL (2.5-4.5)
[2016-08-06 07:01] LABS: PROCALCITONIN <0.05 ng/mL (<0.5)
[2016-08-07 04:55] LABS: A/G RATIO 0.6 (0.7-1.9); ALKALINE PHOSPHATASE 84 U/L (45-117); BUN (BLOOD UREA NITROGEN) 15 MG/DL (6-23); CHLORIDE, SERUM 102 MMOL/L (96-112); CO2 (CARBON DIOXIDE) 27 MMOL/L (24-34); CREATININE 0.48 MG/DL (0.70-1.30); GFR AFRICAN AMERICAN 171 ML/MIN (>=60); GFR NON AFRICAN AMERICAN 148 ML/MIN (>=60); GLOBULIN 4.7 G/DL (2.5-4.1); GLUCOSE, SERUM 65 MG/DL (60-99); PHOSPHORUS, SERUM 3.5 MG/DL (2.5-4.5); POTASSIUM, SERUM 4.2 MMOL/L (3.5-5.3); PREALBUMIN 10.3 MG/DL (17.0-43.0); SGOT(AST) 22 U/L (5-40); SGPT(ALT) 31 U/L (5-65); SODIUM, SERUM 136 MMOL/L (135-148); TOTAL BILIRUBIN 0.6 MG/DL (0-1.2); TOTAL PROTEIN 7.7 G/DL (6.0-8.5); VANCOMYCIN TROUGH 13.6 MCG/ML (10.0-20.0)
[2016-08-09 04:23] LABS: BASOPHILS 0.3 %; BASOPHILS ABSOLUTE 0.03 10/3/uL (0.0-0.16); EOSINOPHILS 2.1 %; HEMATOCRIT 33.2 % (40.0-51.0); HEMOGLOBIN 10.8 g/dL (13.6-17.8); IMMATURE GRANULOCYTES 0.1 %; IMMATURE GRANULOCYTES ABSOLUTE 0.01 10/3/uL (0.0-0.11); LYMPHOCYTES 15.8 %; LYMPHOCYTES ABSOLUTE 1.53 10/3/uL (0.67-4.30); MEAN CORPUS HGB CONC 32.5 g/dL (32.0-36.0); MEAN CORPUSCULAR HEMOGLOB 29.3 pg (26.0-34.0); MEAN CORPUSCULAR VOLUME 90.2 fL (80-100); MEAN PLATELET VOLUME 9.8 fL (9.2-13.0); MONOCYTES 7.8 %; MONOCYTES ABSOLUTE 0.76 10/3/uL (0.21-1.20); NEUTROPHILS 73.9 %; NEUTROPHILS ABSOLUTE 7.18 10/3/uL (2.02-8.40); RBC DISTRIBUTION WIDTH 12.5 % (12.0-16.0); RED CELL COUNT 3.68 10/6/uL (4.7-6.1); WHITE BLOOD CELLS 9.7 10/3/uL (4.5-10.5)
[2016-08-09 04:24] LABS: MANUAL DIFF NO %; PLATELET COUNT 356 10/3/uL (150-400)
[2016-08-09 04:37] LABS: BUN (BLOOD UREA NITROGEN) 16 MG/DL (6-23); CALCIUM, SERUM 8.5 MG/DL (8.5-10.4); CHLORIDE, SERUM 104 MMOL/L (96-112); CO2 (CARBON DIOXIDE) 26 MMOL/L (24-34); GFR AFRICAN AMERICAN 185 ML/MIN (>=60); GFR NON AFRICAN AMERICAN 159 ML/MIN (>=60); GLUCOSE, SERUM 100 MG/DL (60-99); POTASSIUM, SERUM 3.9 MMOL/L (3.5-5.3); SODIUM, SERUM 137 MMOL/L (135-148)
[2016-08-09 05:43] LABS: PROCALCITONIN <0.05 ng/mL (<0.5)
[2016-08-11 06:14] LABS: BASOPHILS 0.2 %; BASOPHILS ABSOLUTE 0.02 10/3/uL (0.0-0.16); EOSINOPHILS 1.1 %; EOSINOPHILS ABSOLUTE 0.13 10/3/uL (0.0-0.53); HEMATOCRIT 34.8 % (40.0-51.0); HEMOGLOBIN 11.3 g/dL (13.6-17.8); IMMATURE GRANULOCYTES 0.2 %; IMMATURE GRANULOCYTES ABSOLUTE 0.02 10/3/uL (0.0-0.11); LYMPHOCYTES 14.1 %; LYMPHOCYTES ABSOLUTE 1.63 10/3/uL (0.67-4.30); MANUAL DIFF NO %; MEAN CORPUS HGB CONC 32.5 g/dL (32.0-36.0); MEAN CORPUSCULAR HEMOGLOB 29.3 pg (26.0-34.0); MEAN CORPUSCULAR VOLUME 90.2 fL (80-100); MEAN PLATELET VOLUME 9.8 fL (9.2-13.0); MONOCYTES 8.6 %; MONOCYTES ABSOLUTE 0.99 10/3/uL (0.21-1.20); NEUTROPHILS 75.8 %; NEUTROPHILS ABSOLUTE 8.78 10/3/uL (2.02-8.40); PLATELET COUNT 442 10/3/uL (150-400); RED CELL COUNT 3.86 10/6/uL (4.7-6.1); WHITE BLOOD CELLS 11.6 10/3/uL (4.5-10.5)
[2016-08-11 06:23] LABS: CALCIUM, SERUM 9.3 MG/DL (8.5-10.4); CHLORIDE, SERUM 109 MMOL/L (96-112); CO2 (CARBON DIOXIDE) 27 MMOL/L (24-34); CREATININE 0.59 MG/DL (0.70-1.30); GFR AFRICAN AMERICAN 157 ML/MIN (>=60); GFR NON AFRICAN AMERICAN 136 ML/MIN (>=60); GLUCOSE, SERUM 80 MG/DL (60-99); POTASSIUM, SERUM 4.4 MMOL/L (3.5-5.3); SODIUM, SERUM 143 MMOL/L (135-148)
[2016-08-11 06:27] LABS: BUN (BLOOD UREA NITROGEN) 25 MG/DL (6-23)
[2016-08-13 04:30] LABS: BASOPHILS 0.3 %; BASOPHILS ABSOLUTE 0.03 10/3/uL (0.0-0.16); EOSINOPHILS 2.7 %; EOSINOPHILS ABSOLUTE 0.27 10/3/uL (0.0-0.53); HEMATOCRIT 34.2 % (40.0-51.0); HEMOGLOBIN 10.8 g/dL (13.6-17.8); IMMATURE GRANULOCYTES 0.2 %; IMMATURE GRANULOCYTES ABSOLUTE 0.02 10/3/uL (0.0-0.11); LYMPHOCYTES 15.6 %; LYMPHOCYTES ABSOLUTE 1.54 10/3/uL (0.67-4.30); MEAN CORPUS HGB CONC 31.6 g/dL (32.0-36.0); MEAN CORPUSCULAR HEMOGLOB 28.7 pg (26.0-34.0); MEAN PLATELET VOLUME 9.7 fL (9.2-13.0); MONOCYTES 7.5 %; MONOCYTES ABSOLUTE 0.74 10/3/uL (0.21-1.20); NEUTROPHILS 73.7 %; NEUTROPHILS ABSOLUTE 7.26 10/3/uL (2.02-8.40); PLATELET COUNT 387 10/3/uL (150-400); RBC DISTRIBUTION WIDTH 12.7 % (12.0-16.0); RED CELL COUNT 3.76 10/6/uL (4.7-6.1); WHITE BLOOD CELLS 9.9 10/3/uL (4.5-10.5)
[2016-08-13 04:33] LABS: MANUAL DIFF NO %
[2016-08-13 04:42] LABS: BUN (BLOOD UREA NITROGEN) 31 MG/DL (6-23); CALCIUM, SERUM 9.1 MG/DL (8.5-10.4); CHLORIDE, SERUM 103 MMOL/L (96-112); CO2 (CARBON DIOXIDE) 29 MMOL/L (24-34); CREATININE 0.56 MG/DL (0.70-1.30); GFR AFRICAN AMERICAN 161 ML/MIN (>=60); GFR NON AFRICAN AMERICAN 139 ML/MIN (>=60); GLUCOSE, SERUM 103 MG/DL (60-99); POTASSIUM, SERUM 4.1 MMOL/L (3.5-5.3); SODIUM, SERUM 136 MMOL/L (135-148)
[2016-08-14 04:32] LABS: ALLENS TEST Pos; CARBOXYHEMOGLOBIN 0.3 % (0-3); DEVICE HFNC; HCO3 (ACTUAL BICARBONATE) 27.1 MEQ/L (23-27); HEMOBLOGIN CONTENT 10.1 G/DL (14-18); INSTRUMENT SERIAL # 8083; METHEMOGLOBIN 0.3 % (0-3); O2 CONTENT 14.2 VOL% (18-24); PCO2 (CO2 TENSION) 39 MMHG (35-45); PO2 (O2 TENSION) 127 MMHG (79-93); SAMPLE Arterial; pH 7.46 (7.37-7.43)
[2016-08-14 04:40] LABS: A/G RATIO 0.6 (0.7-1.9); ALBUMIN 2.7 G/DL (3.5-5.0); CALCIUM, SERUM 8.5 MG/DL (8.5-10.4); CHLORIDE, SERUM 101 MMOL/L (96-112); CO2 (CARBON DIOXIDE) 30 MMOL/L (24-34); CREATININE 0.56 MG/DL (0.70-1.30); GFR AFRICAN AMERICAN 161 ML/MIN (>=60); GFR NON AFRICAN AMERICAN 139 ML/MIN (>=60); GLOBULIN 4.3 G/DL (2.5-4.1); GLUCOSE, SERUM 95 MG/DL (60-99); PHOSPHORUS, SERUM 3.4 MG/DL (2.5-4.5); POTASSIUM, SERUM 4.2 MMOL/L (3.5-5.3); PREALBUMIN 14.2 MG/DL (17.0-43.0); SGOT(AST) 20 U/L (5-40); SGPT(ALT) 25 U/L (5-65); SODIUM, SERUM 135 MMOL/L (135-148); TOTAL BILIRUBIN 0.3 MG/DL (0-1.2)
[2016-08-14 04:45] LABS: ALKALINE PHOSPHATASE 68 U/L (45-117); BUN (BLOOD UREA NITROGEN) 22 MG/DL (6-23)
[2016-08-14 07:01] LABS: PROCALCITONIN <0.05 ng/mL (<0.5)
[2016-08-16 05:57] LABS: A/G RATIO 0.6 (0.7-1.9); ALBUMIN 2.8 G/DL (3.5-5.0); CALCIUM, SERUM 8.7 MG/DL (8.5-10.4); CHLORIDE, SERUM 101 MMOL/L (96-112); CO2 (CARBON DIOXIDE) 26 MMOL/L (24-34); CREATININE 0.48 MG/DL (0.70-1.30); GFR AFRICAN AMERICAN 171 ML/MIN (>=60); GFR NON AFRICAN AMERICAN 148 ML/MIN (>=60); GLOBULIN 4.8 G/DL (2.5-4.1); GLUCOSE, SERUM 99 MG/DL (60-99); PHOSPHORUS, SERUM 3.1 MG/DL (2.5-4.5); PREALBUMIN 16.7 MG/DL (17.0-43.0); SGOT(AST) 17 U/L (5-40); SGPT(ALT) 26 U/L (5-65); SODIUM, SERUM 135 MMOL/L (135-148); TOTAL BILIRUBIN 0.4 MG/DL (0-1.2); TOTAL PROTEIN 7.6 G/DL (6.0-8.5)
[2016-08-16 05:58] LABS: ALKALINE PHOSPHATASE 82 U/L (45-117); BUN (BLOOD UREA NITROGEN) 28 MG/DL (6-23)
[2016-08-17 05:12] LABS: INTERNATIONAL NORMAL RATI 1.3 UNITS (-)
[2016-08-17 05:20] LABS: BASOPHILS 0.5 %; BASOPHILS ABSOLUTE 0.05 10/3/uL (0.0-0.16); EOSINOPHILS 2.2 %; EOSINOPHILS ABSOLUTE 0.21 10/3/uL (0.0-0.53); HEMATOCRIT 32.1 % (40.0-51.0); HEMOGLOBIN 10.5 g/dL (13.6-17.8); IMMATURE GRANULOCYTES 0.3 %; IMMATURE GRANULOCYTES ABSOLUTE 0.03 10/3/uL (0.0-0.11); LYMPHOCYTES 21.5 %; LYMPHOCYTES ABSOLUTE 2.03 10/3/uL (0.67-4.30); MEAN CORPUS HGB CONC 32.7 g/dL (32.0-36.0); MEAN CORPUSCULAR HEMOGLOB 29.4 pg (26.0-34.0); MEAN CORPUSCULAR VOLUME 89.9 fL (80-100); MEAN PLATELET VOLUME 10.1 fL (9.2-13.0); MONOCYTES 8.4 %; MONOCYTES ABSOLUTE 0.79 10/3/uL (0.21-1.20); NEUTROPHILS 67.1 %; NEUTROPHILS ABSOLUTE 6.33 10/3/uL (2.02-8.40); PLATELET COUNT 398 10/3/uL (150-400); RBC DISTRIBUTION WIDTH 12.5 % (12.0-16.0); RED CELL COUNT 3.57 10/6/uL (4.7-6.1); WHITE BLOOD CELLS 9.4 10/3/uL (4.5-10.5)
[2016-08-17 05:21] LABS: MANUAL DIFF NO %
[2016-08-17 05:22] LABS: A/G RATIO 0.6 (0.7-1.9); ALBUMIN 2.6 G/DL (3.5-5.0); ALKALINE PHOSPHATASE 79 U/L (45-117); CALCIUM, SERUM 8.7 MG/DL (8.5-10.4); CHLORIDE, SERUM 102 MMOL/L (96-112); CO2 (CARBON DIOXIDE) 29 MMOL/L (24-34); CREATININE 0.43 MG/DL (0.70-1.30); GFR AFRICAN AMERICAN 179 ML/MIN (>=60); GFR NON AFRICAN AMERICAN 155 ML/MIN (>=60); GLOBULIN 4.2 G/DL (2.5-4.1); GLUCOSE, SERUM 95 MG/DL (60-99); PHOSPHORUS, SERUM 3.1 MG/DL (2.5-4.5); POTASSIUM, SERUM 4.3 MMOL/L (3.5-5.3); SGOT(AST) 18 U/L (5-40); SGPT(ALT) 21 U/L (5-65); SODIUM, SERUM 135 MMOL/L (135-148); TOTAL BILIRUBIN 0.5 MG/DL (0-1.2); TOTAL PROTEIN 6.8 G/DL (6.0-8.5)
[2016-08-17 05:28] LABS: BUN (BLOOD UREA NITROGEN) 24 MG/DL (6-23)
[2016-08-17 05:33] LABS: PREALBUMIN 15.1 MG/DL (17.0-43.0)
[2016-08-18 05:22] LABS: A/G RATIO 0.7 (0.7-1.9); ALBUMIN 3.2 G/DL (3.5-5.0); ALKALINE PHOSPHATASE 95 U/L (45-117); BUN (BLOOD UREA NITROGEN) 23 MG/DL (6-23); CHLORIDE, SERUM 100 MMOL/L (96-112); CO2 (CARBON DIOXIDE) 25 MMOL/L (24-34); CREATININE 0.52 MG/DL (0.70-1.30); GFR AFRICAN AMERICAN 166 ML/MIN (>=60); GFR NON AFRICAN AMERICAN 143 ML/MIN (>=60); GLOBULIN 4.9 G/DL (2.5-4.1); GLUCOSE, SERUM 97 MG/DL (60-99); PHOSPHORUS, SERUM 3.2 MG/DL (2.5-4.5); POTASSIUM, SERUM 4.1 MMOL/L (3.5-5.3); PREALBUMIN 17.4 MG/DL (17.0-43.0); SGOT(AST) 23 U/L (5-40); SGPT(ALT) 27 U/L (5-65); SODIUM, SERUM 134 MMOL/L (135-148); TOTAL BILIRUBIN 0.6 MG/DL (0-1.2); TOTAL PROTEIN 8.1 G/DL (6.0-8.5)
[2016-08-19 05:24] LABS: BASOPHILS 0.2 %; BASOPHILS ABSOLUTE 0.03 10/3/uL (0.0-0.16); EOSINOPHILS 0.5 %; EOSINOPHILS ABSOLUTE 0.06 10/3/uL (0.0-0.53); HEMOGLOBIN 11.9 g/dL (13.6-17.8); IMMATURE GRANULOCYTES 0.5 %; IMMATURE GRANULOCYTES ABSOLUTE 0.06 10/3/uL (0.0-0.11); LYMPHOCYTES ABSOLUTE 0.88 10/3/uL (0.67-4.30); MEAN CORPUS HGB CONC 32.2 g/dL (32.0-36.0); MEAN CORPUSCULAR HEMOGLOB 28.6 pg (26.0-34.0); MEAN CORPUSCULAR VOLUME 88.9 fL (80-100); MEAN PLATELET VOLUME 10.3 fL (9.2-13.0); MONOCYTES 5.8 %; MONOCYTES ABSOLUTE 0.73 10/3/uL (0.21-1.20); NEUTROPHILS ABSOLUTE 10.75 10/3/uL (2.02-8.40); PLATELET COUNT 434 10/3/uL (150-400); RBC DISTRIBUTION WIDTH 12.6 % (12.0-16.0); RED CELL COUNT 4.16 10/6/uL (4.7-6.1); WHITE BLOOD CELLS 12.5 10/3/uL (4.5-10.5)
[2016-08-19 05:36] LABS: A/G RATIO 0.6 (0.7-1.9); ALBUMIN 2.9 G/DL (3.5-5.0); ALKALINE PHOSPHATASE 88 U/L (45-117); BUN (BLOOD UREA NITROGEN) 21 MG/DL (6-23); CALCIUM, SERUM 8.9 MG/DL (8.5-10.4); CHLORIDE, SERUM 99 MMOL/L (96-112); CO2 (CARBON DIOXIDE) 23 MMOL/L (24-34); CREATININE 0.54 MG/DL (0.70-1.30); GFR AFRICAN AMERICAN 163 ML/MIN (>=60); GFR NON AFRICAN AMERICAN 141 ML/MIN (>=60); GLOBULIN 4.9 G/DL (2.5-4.1); PHOSPHORUS, SERUM 3.4 MG/DL (2.5-4.5); PREALBUMIN 16.3 MG/DL (17.0-43.0); SGPT(ALT) 28 U/L (5-65); SODIUM, SERUM 131 MMOL/L (135-148); TOTAL BILIRUBIN 0.6 MG/DL (0-1.2); TOTAL PROTEIN 7.8 G/DL (6.0-8.5)
[2016-08-19 05:39] LABS: GLUCOSE, SERUM 123 MG/DL (60-99); SGOT(AST) 51 U/L (5-40)
[2016-08-19 05:40] LABS: POTASSIUM, SERUM 4.7 MMOL/L (3.5-5.3)
[2016-08-19 06:20] LABS: MANUAL DIFF NO %
[2016-08-20] MEDS ORDERED: FENESIN IR400 MG NR (13:59)
[2016-08-20] MEDS ORDERED: AMB5 NR (13:59)
[2016-08-20] MEDS ORDERED: CETIRIZINE 1 MG/ML NR (14:00)
[2016-08-20] MEDS ORDERED: DESITIN TOP (14:01)
[2016-08-20] MEDS ORDERED: DUONEB INH (14:02)
[2016-08-20] MEDS ORDERED: MIRALAX POWDER1 PKT PO (14:03)
[2016-08-24] MEDS ORDERED: SINGULAIR1 PO (16:04)
[2016-08-24] MEDS ORDERED: PREDNISOLO15 MG/5 ML PO (16:06)
== END 2016-08-19 14:07 | disposition hospice, home (50) | DRG 853 ==
LOC: ER 10:59 → CCU 15:24 → IMCU 07-30 19:52
PROVIDERS: Emergency Medicine; Internal Medicine; Internal Medicine Critical Care Medicine; Internal Medicine Pulmonary Disease
DX: A41.9 Sepsis, unspecified organism (principal); J96.21 Acute and chronic respiratory failure with hypoxia; J69.0 Pneumonitis due to inhalation of food and vomit; E43 Unspecified severe protein-calorie malnutrition; T17.890A Other foreign object in other parts of respiratory tract causing asphyxiation, initial encounter; K94.22 Gastrostomy infection; F72 Severe intellectual disabilities; M41.9 Scoliosis, unspecified; E86.0 Dehydration; J96.22 Acute and chronic respiratory failure with hypercapnia; L03.311 Cellulitis of abdominal wall; F73 Profound intellectual disabilities; J98.11 Atelectasis; Z68.1 Body mass index [BMI] 19.9 or less, adult; K94.23 Gastrostomy malfunction; R65.20 Severe sepsis without septic shock; Z66 Do not resuscitate; Z51.5 Encounter for palliative care; Y83.3 Surgical operation with formation of external stoma as the cause of abnormal reaction of the patient, or of later complication, without mention of misadventure at the time of the procedure; Y92.009 Unspecified place in unspecified non-institutional (private) residence as the place of occurrence of the external cause; F09 Unspecified mental disorder due to known physiological condition; T17.990A Other foreign object in respiratory tract, part unspecified in causing asphyxiation, initial encounter; Z62.810 Personal history of physical and sexual abuse in childhood; K59.00 Constipation, unspecified
CPT/HCPCS: 36569; 36584; 36600; 49451; 71010; 71260; 71275; 74022; 74177; 80048; 80053; 80202; 81001; 82009; 82140; 82330; 82533; 82728; 82803; 82805; 82947; 82962; 83036; 83540; 83550; 83605; 83615; 83735; 83880; 84100; 84132; 84134; 84145; 84295; 84439; 84443; 85014; 85025; 85610; 85730; 87015; 87040; 87070; 87077; 87102; 87116; 87186; 87205; 87641; 88112; 93005; 94640; 94660; 94667; 94668; 99285; A9270-GY; C1751; C1769; C9113; J1940; J2405; J2543; J3010; J3370; J3411; P9047; Q9967

== ENCOUNTER 2016-08-20 15:13 | Emergency (ER) | payer MEDICARE, OTHER ==
[~2016-08-20 15:13] MED LIST changes: +AMB5 NR; +CETIRIZINE 1 MG/ML NR; +CONSTULOSE PEG; +FENESIN IR400 MG NR; +FLEET ENEMA PR; +IPRATROPIUM NEB INH
[2016-08-20 15:57] LABS: BASOPHILS 0.4 %; BASOPHILS ABSOLUTE 0.04 10/3/uL (0.0-0.16); EOSINOPHILS 4.6 %; EOSINOPHILS ABSOLUTE 0.41 10/3/uL (0.0-0.53); ER CBC TAT 0 Hrs 09 Mins; HEMATOCRIT 36.1 % (40.0-51.0); HEMOGLOBIN 11.5 g/dL (13.6-17.8); IMMATURE GRANULOCYTES 0.2 %; IMMATURE GRANULOCYTES ABSOLUTE 0.02 10/3/uL (0.0-0.11); LYMPHOCYTES 28.4 %; LYMPHOCYTES ABSOLUTE 2.55 10/3/uL (0.67-4.30); MEAN CORPUS HGB CONC 31.9 g/dL (32.0-36.0); MEAN CORPUSCULAR HEMOGLOB 28.3 pg (26.0-34.0); MEAN CORPUSCULAR VOLUME 88.9 fL (80-100); MEAN PLATELET VOLUME 9.9 fL (9.2-13.0); MONOCYTES 7.8 %; NEUTROPHILS 58.6 %; NEUTROPHILS ABSOLUTE 5.26 10/3/uL (2.02-8.40); PLATELET COUNT 435 10/3/uL (150-400); RBC DISTRIBUTION WIDTH 12.8 % (12.0-16.0); RED CELL COUNT 4.06 10/6/uL (4.7-6.1)
[2016-08-20 15:58] LABS: MANUAL DIFF NO %
[2016-08-20 16:14] LABS: A/G RATIO 0.7 (0.7-1.9); ALBUMIN 3.3 G/DL (3.5-5.0); ALKALINE PHOSPHATASE 93 U/L (45-117); BUN (BLOOD UREA NITROGEN) 21 MG/DL (6-23); CALCIUM, SERUM 9.1 MG/DL (8.5-10.4); CHLORIDE, SERUM 98 MMOL/L (96-112); CREATININE 0.43 MG/DL (0.70-1.30); GFR AFRICAN AMERICAN 179 ML/MIN (>=60); GFR NON AFRICAN AMERICAN 155 ML/MIN (>=60); GLOBULIN 4.5 G/DL (2.5-4.1); SGOT(AST) 36 U/L (5-40); SGPT(ALT) 39 U/L (5-65); SODIUM, SERUM 134 MMOL/L (135-148); TOTAL BILIRUBIN 0.6 MG/DL (0-1.2); TOTAL PROTEIN 7.8 G/DL (6.0-8.5)
[2016-08-20 16:19] LABS: CO2 (CARBON DIOXIDE) 28 MMOL/L (24-34); GLUCOSE, SERUM 62 MG/DL (60-99)
[2016-08-20 17:10] LABS: PROCALCITONIN <0.05 ng/mL (<0.5)
[2016-08-24] MEDS ORDERED: SINGULAIR1 PO (16:04)
[2016-08-24] MEDS ORDERED: PREDNISOLO15 MG/5 ML PO (16:06)
== END 2016-08-20 17:44 | disposition home or self-care (01) ==
LOC: ER 15:13
PROVIDERS: Emergency Medicine
DX: T17.990A Other foreign object in respiratory tract, part unspecified in causing asphyxiation, initial encounter (principal); R62.50 Unspecified lack of expected normal physiological development in childhood; Z87.01 Personal history of pneumonia (recurrent); F79 Unspecified intellectual disabilities; Z79.899 Other long term (current) drug therapy
CPT/HCPCS: 71010; 80053; 81001; 83605; 84145; 85025; 87040; 93005; 99284